=== PATIENT | female | born 1955 | race Hispanic/Latino ===

== ENCOUNTER 2023-03-24 08:55 | Emergency (ER) | payer MEDICARE ==
[~2023-03-24] VITALS: Ht 162.6 cm; Wt 53.0 kg
[2023-03-24 10:29] VITALS: BP 124/54
[2023-03-24 10:30] VITALS: BP 120/69
[2023-03-24] MEDS ORDERED: KETOROLAC TROMETHAMINE 30 MG/ML SDV IM ONE (10:40)
[2023-03-24] MEDS ORDERED: ACETAMINOPHEN 500 MG TAB PO ONE (10:40)
[2023-03-24 11:30] VITALS: BP 125/61
[2023-03-24 12:00] VITALS: BP 117/57
[2023-03-24] MEDS ORDERED: LIDOCAINE PATCH 55 % TOP (12:15)
[2023-03-24] MEDS ORDERED: NAPROXEN500 MG PO (12:15)
[2023-03-24 12:20] VITALS: BP 117/57
== END 2023-03-24 12:29 | disposition home or self-care (01) ==
LOC: ED 08:55
DX: M54.50 Low back pain, unspecified (principal)